=== PATIENT | male | born 1990 | race Caucasian/White ===

== ENCOUNTER 2016-09-24 17:46 | Emergency (ER) | payer MEDICAID ==
[2016-09-24 18:07] VITALS: TEMP 98; O2SAT 98
[2016-09-24] MEDS ORDERED: Sodium Chloride 0.9% 1,000 ML IV ONE (19:12)
[2016-09-24 19:33] LABS: BASO # 0.1 K/uL (0.0-0.2); BASO % 1.2 % (0.0-2.0); EOS # 0.1 K/uL (0.0-0.7); EOS % 1.5 % (0.0-4.0); HEMATOCRIT 43.9 % (35.0-51.0); LYMPH # 1.2 K/uL (1.0-4.3); LYMPH % 25.6 % (20.0-40.0); MEAN CELL VOLUME 87.3 fL (80.0-94.0); MEAN CORPUSCULAR HEMOGLOBIN 29.6 pg (27.0-31.0); MEAN CORPUSCULAR HGB CONC 33.9 g/dL (33.0-37.0); MEAN PLATELET VOLUME 9.2 fL (7.2-11.7); MONO # 0.5 K/uL (0.0-0.8); MONO % 10.7 % (0.0-10.0); RED CELL DISTRIBUTION WIDTH 12.5 % (11.5-14.5); WHITE BLOOD COUNT 4.9 K/uL (4.8-10.8)
[2016-09-24 19:40] LABS: CHLORIDE 98 mmol/L (98-107); POTASSIUM 3.9 mmol/L (3.6-5.2); SODIUM 139 mmol/L (132-148)
[2016-09-24 19:42] LABS: ALB/GLOB RATIO 1.3 (1.0-2.1); AST/SGOT 38 U/L (17-59); BILIRUBIN,TOTAL 0.8 mg/dL (0.2-1.3); CARBON DIOXIDE 29 mmol/L (22-30); GFR AFRICAN-AMERICAN > 60; TOTAL PROTEIN 8.3 g/dL (6.3-8.3)
--- NOTE | 2016-09-24 19:42 | C.PDOC ---
History Of Present Illness 25 y/o male complains of decreased appetite and weight loss of 15 pounds over one month. He reports malaise and occasional headaches. Denies fever, sore throat, ear pain, visual changes, dizziness, chest pain, SOB, abdominal pain, vomiting, diarrhea, recent travel, depression. Time Seen by Provider: 09/24/16 19:05 Chief Complaint (Nursing): Medical Clearance History Per: Patient History/Exam Limitations: no limitations Onset/Duration Of Symptoms: Days Current Symptoms Are (Timing): Still Present Severity: Mild Recent travel outside of the [place]: No Past Medical History Reviewed: Historical Data, Nursing Documentation, Vital Signs Vital Signs: Last Vital Signs Temp 98 F 09/24/16 18:05 Pulse 88 09/24/16 20:54 Resp 18 09/24/16 20:54 BP 132/79 09/24/16 20:54 Pulse Ox 98 09/24/16 20:54 Family History: States: Unknown Family Hx - Social History Hx Alcohol Use: No Hx Substance Use: No - Immunization History Hx Tetanus Toxoid Vaccination: No Hx Influenza Vaccination: No Hx Pneumococcal Vaccination: No Review Of Systems Constitutional: Positive for: Malaise, Weight loss, Other (decreased appetite). Negative for: Fever Eyes: Negative for: Vision Change ENT: Negative for: Ear Pain, Throat Pain Cardiovascular: Negative for: Chest Pain Respiratory: Negative for: Shortness of Breath Gastrointestinal: Negative for: Vomiting, Abdominal Pain, Diarrhea Neurological: Positive for: Headache. Negative for: Dizziness Psych: Negative for: Depression Physical Exam - Physical Exam Appears: Non-toxic, No Acute Distress Skin: Warm, Dry, No Rash Head: Atraumatic, Normacephalic Eye(s): bilateral: Normal Inspection, EOMI Ear(s): Bilateral: Normal Nose: Normal Oral Mucosa: Moist Throat: Normal, No Erythema Neck: Normal, Normal ROM, Supple Chest: Symmetrical Cardiovascular: Rhythm Regular, No Murmur Respiratory: Normal Breath Sounds, No Rales, No Rhonchi, No Wheezing Gastrointestinal/Abdominal: Normal Exam, Soft, No Tenderness, No Guarding, No Rebound Extremity: Bilateral: Atraumatic, Normal Color And Temperature Neurological/Psych: Oriented x3, Normal Speech, Normal Motor, Normal Sensation Gait: Steady ED Course And Treatment - Laboratory Results Result Diagrams: 09/24/16 19:29 09/24/16 19:29 Lab Interpretation: No Acute Changes O2 Sat by Pulse Oximetry: 98 (room air) Pulse Ox Interpretation: Normal Medical Decision Making Medical Decision Making: Impression: malaise and weight loss Plan: * Labs * IV NS Progress: Labs reviewed and unremarkable. Patient did not provide urine specimen and has no urinary complaints. He states he feels fine and is asking for discharge. Provide copy of all results and advise follow up with PCP for further evaluation. Disposition Counseled Patient/Family Regarding: Studies Performed, Diagnosis, Need For Followup - Disposition Referrals: [facility] [Outside] [facility] [Outside] Disposition: HOME/ ROUTINE Disposition Time: 20:46 Condition: STABLE Additional Instructions: Your labs are normal Please follow up with primary doctor or in the clinic in few days for further evaluation You may call [facility] for any assistance in finding doctor [phone]. Return to the emergency department at any time if symptoms persist or worsen. Instructions: Weight Management (DC) - POA Present On Arrival: None - Clinical Impression Clinical Impression: Medical assessment, Weight loss, non-intentional - PA / [employer] / Resident Statement MD/DO has reviewed & agrees with the documentation as recorded. - Scribe Statement The provider has reviewed the documentation as recorded by the Malu Carrasquillo All medical record entries made by the Malu were at my direction and personally dictated by me. I have reviewed the chart and agree that the record accurately reflects my personal performance of the history, physical exam, medical decision making, and the department course for this patient. I have also personally directed, reviewed, and agree with the discharge instructions and disposition.
[2016-09-24 19:43] LABS: ALKALINE PHOSPHATASE 66 U/L (38-126); ALT/SGPT 36 U/L (21-72); BLOOD UREA NITROGEN 22 mg/dL (9-20); CALCIUM 9.1 mg/dl (8.6-10.4); GLUCOSE,RANDOM 94 mg/dL (75-110)
[2016-09-24 20:55] VITALS: BP 132/79; PULSE 88; RESP 18
== END 2016-09-24 20:55 | disposition home or self-care (01) ==
LOC: C.ER 17:46
DX: R63.4 Abnormal weight loss (principal)